=== PATIENT | female | born 2000 | race Caucasian/White ===

== ENCOUNTER → 2018-02-06 11:57 | Observation (INO) ==
--- NOTE | 2018-02-06 15:05 | Discharge Summary ---
Date of Encounter: 02/06/18 Time of Encounter: 11:26 - Discharge Diagnosis (1) 30 weeks gestation of Priority: Primary Status: Acute Comments: admitted for observation (2) Decreased movement during in third trimester, antepartum Priority: Secondary Status: Acute Comments: FHR 140 bpm moderate variability appropriate for gestational age patient reports feeling movement Qualifiers: Fetus number: single or unspecified fetus Qualified Code(s): O36.8130 - Decreased movements, third trimester, not applicable or unspecified - Discharge Medications Home Medications: Ferrous Sulfate [Iron] 325 mg PO 02/06/18 [History] Vit/Iron Fumarate/FA [ Tablet] 1 each PO 02/06/18 [History] Allergies/Adverse Reactions: 3 Allergy/AdvReac Type Severity Reaction Status Date / Time No Known Allergies Allergy Verified 02/06/18 11:21 Date of admission: 02/06/18 11:11 Primary care physician: PCP NONE Discharging clinician: Crystal Holman Anticipated date of discharge: 02/06/18 - Patient Status Disposition: Home, Self-Care Condition: Good - Discharge Instructions Follow Up With: NONE,PCP [Primary Care Provider] - - Diet and Activity Activity: increase activity as tolerated 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 Patient denies contractions, LOF or VB. During observation patient reports feeling an active baby and reports +FM. Time Attestation: Total time spent providing and/or coordinating discharge services: Time Spent: Less than 30 minutes Exam - Other Additional findings: Patient seen and assessed per RN. FHR 140 bpm moderate variability +15x15 accels no decels noted. Appropriate for gestational age. - VTE Reasons for not Prescribing Prophylaxis: Treatment not Indicated - Low risk for VTE
== END | disposition home or self-care (01) ==
LOC: 1NENULAB
PROVIDERS: ADMIT Obstetrics & Gynecology; ATTEND Obstetrics & Gynecology

== ENCOUNTER 2018-04-08 05:30 | Inpatient (IN) ==
[2018-04-08] MEDS ORDERED: Lidocaine 1% 20 ML MDV INFILT PRN (05:57)
[2018-04-08] MEDS ORDERED: Famotidine 20 MG/2 ML VIAL IVP PRN (05:57)
[2018-04-08] MEDS ORDERED: *HR* Nalbuphine 10 MG/ML AMPUL IVP PRN (05:57)
[2018-04-08] MEDS ORDERED: Naloxone 0.4 MG/ML INJ IVP PRN (05:57)
[2018-04-08] MEDS ORDERED: Ondansetron 4 MG/2 ML VIAL IVP PRN (05:57)
[2018-04-08] MEDS ORDERED: miSOPROStol 100 MCG TABLET PO PRN (05:57)
[2018-04-08] MEDS ORDERED: Metoclopramide 10 MG/2 ML VIAL IVP PRN (05:57)
[2018-04-08] MEDS ORDERED: D5% in 0.45% NACL 1,000 ML IVC SCH (06:00)
[2018-04-08] MEDS ORDERED: Ringers Solution, Lactated 1,000 ML IVC SCH (06:00)
[2018-04-08 06:29] LABS: Basophils % 0.3 %; Eosinophils # 0.1 K/mcL (0.0-0.6); Eosinophils % 0.9 %; Hematocrit 37.7 % (35.3-44.9); Hemoglobin 12.6 g/dL (11.5-15.4); Immature Granulocytes % 0.5 % (0-4); Lymphocytes # 2.3 K/mcL (0.6-4.6); Lymphocytes % 35.1 %; Mean Corpuscular HGB Conc 33.4 g/dL (31.6-35.5); Mean Corpuscular Hemoglobin 27.7 pg (28.0-33.3); Mean Corpuscular Volume 82.9 fL (83.0-100.0); Mean Platelet Volume 10.9 fL (9.4-12.4); Monocytes # 0.6 K/mcL (0.0-1.3); Monocytes % 9.5 %; Neutrophils # 3.6 K/mcL (1.6-8.9); Platelet Count 215 K/mcL (140-400); Red Blood Count 4.55 M/mcL (3.82-4.97); Red Cell Distribution Width 12.7 % (11.5-14.5); Segmented Neutrophils % 53.7 %
[2018-04-08 06:31] LABS: Amphetamine Screen,Urine Negative ng/mL (Cutoff=1000); Barbiturate Screen,Urine Negative ng/mL (Cutoff=200)
[2018-04-08 06:32] LABS: Benzodiazepines Screen,Urine Negative ng/mL (Cutoff=300); Cannabinoid Screen,Urine Negative ng/mL (Cutoff = 50); Cocaine Screen,Urine Negative ng/mL (Cutoff= 300); Opiate Screen,Urine Negative ng/mL (Cutoff=300); Phencyclidine Screen,Urine Negative ng/mL (Cutoff=25)
--- NOTE | 2018-04-08 09:13 | OB/GYN History & Physical ---
Date of Encounter: 04/08/18 Time of Encounter: 09:11 Assessment and Plan (1) 39 weeks gestation of Current visit: Yes Status: Acute (2) Elective induction of labor planned Current visit: Yes Status: Acute (3) High risk teen in third trimester Current visit: Yes Status: Acute The patient has good support socially. History of Present Illness Chief complaint: Induction of labor at 39 weeks HPI: Ms. Felix is a 17 year old female 1 para 0 with an EDC of 04/13/18 at 39 weeks and 1 day who presents for induction of labor. She has given informed consent. Her Mukherjee score is 10. She denies any rupture membranes or loss of fluid. Fetus has been active. was complicated by teen , anemia and treated with oral iron supplementation. Her labs include A+ blood type, GBS negative, rubella immune, varicella immune. Past Med Surg Social Fam HX - Past Medical History Source: patient, old records reviewed Medical history: no medical history Psychiatric history: no psych history - Past Surgical History Surgical History: no surgical history - Social History Smoking Status: Never smoker Smokeless Tobacco Status: No Alcohol use: none Drug use: none Occupational status: unemployed Current living situation: With Family - Family History Mother Family Member Ethnicity: Non- Living Status: Hx Family Cancer: Yes (cervical cancer) Obstetrical History - Pregnancies : 1 Medications and Allergies Ferrous Sulfate [Iron] 325 mg PO DAILY 02/06/18 [History] Vit/Iron Fumarate/FA [ Tablet] 1 each PO DAILY 02/06/18 [ History] 3 Allergy/AdvReac Type Severity Reaction Status Date / Time No Known Allergies Allergy Verified 04/08/18 06:08 Review of System OB All systems PM: reviewed and no additional remarkable complaints except as stated - Constitutional Constitutional ROS IM: fatigue, weight gain - Muscloskeletal Musculoskeletal: back pain Exam - Vital Signs Vital signs: Afebrile, vital signs stable - Constitutional Constitutional: well developed, well nourished, no acute distress, average body habitus - HEENT HEENT: Normocephaly, Mucus Membranes Moist - Neck Neck exam: normal inspection, supple - Lungs Respiratory exam: CTAB - Cardiovascular Cardiovascular exam: RRR - Breasts Breast: bilateral: normal (Gravid) - Abdomen Abdomen: Present: bowel sounds normal, gravid, non tender - Extremities Extremities exam: pedal edema, warm Deep Tendon Reflex Grade: 3+ Normal But Brisk - Vulva Vulva: bilateral: normal - Vagina Vagina: Present: normal moisture - Cervix Dilation: 3 Effacement: 80 Station: -1 - Anus/Rectum Anus/Rectum: Present: normal perianal skin Results Result Diagrams: 04/08/18 06:05 Abnormal lab results MCV 82.9 fL (83.0-100.0) L 04/08/18 06:05 MCH 27.7 pg (28.0-33.3) L 04/08/18 06:05 All other labs normal. - VTE Reasons for not Prescribing Prophylaxis: Treatment not Indicated - Low risk for VTE
--- NOTE | 2018-04-08 10:11 | Anesthesia Evaluation PreOp ---
Date of Encounter: 04/08/18 Time of Encounter: 10:10 - Past History Planned Operation: suzanne Cardiac History: Denies any Significant Hx Pulmonary History: Denies Any Significant HX BARREL RACER History: Denies Any Significant HX Other Medical History: Denies Any Significant HX Anesthesia History: No Prior Anesthetic Complications, Past Anesthesia : Yes (39 weeks, g1) Alcohol Use: none Drug use: none Medications and Allergies Ferrous Sulfate [Iron] 325 mg PO DAILY 02/06/18 [History] Vit/Iron Fumarate/FA [ Tablet] 1 each PO DAILY 02/06/18 [ History] 3 Allergy/AdvReac Type Severity Reaction Status Date / Time No Known Allergies Allergy Verified 04/08/18 06:08 - Meds/Allergy Pre-op Review Medications Reviewed: Yes Allergies Reviewed: Yes Beta Blockers on Current Med List: No Anesthesia Results - Labs 04/08/18 06:05 Anesthesia Exam O2 Sat Height 1.63 m Height 1.63 m Weight 69.4 kg Weight 69.4 kg Height: 64 Weight: 154 - HEENT Pupil (Motor): Pupils equal Mallampati: II Teeth: Normal Oral Opening: Greater than 3 - BARREL RACER LOC: Oriented BARREL RACER Motor: Normal RUE, Normal LUE, Normal RLE, Normal LLE, Normal Face BARREL RACER Sensory: Normal: RUE, LUE, RLE, LLE, Face - Cardiac Rhythm: Regular Murmur: None JVD: No Carotid Bruit: No - Pulmonary Breath Sounds: bilateral Clear Respiratory Effort: Symmetrical Anesthesia Assess/Plan ASA Score: 2 Modified Darren Scale for Level of Consciousness: Cooperative, oriented, and tranquil Anesthetic Plan: Regional Monitoring Plan: Standard Monitors
--- NOTE | 2018-04-08 13:44 | OB Labor Progress Note ---
Date of Encounter: 04/08/18 Time of Encounter: 13:42 Labor Progress Note - Subjective Subjective: Pt reports minimal pain with contractions. - Cervix Cervix: 3/80/-1 - Heart Tones Heart Tones: Category I - [place]: 2-3 minutes - Interventions Interventions: AROM for moderate amount clear fluid. IUPC placed. - Plan Plan: Continue to monitor. Augment with pitocin if needed for adequate contractions.
[2018-04-08] MEDS ORDERED: Oxytocin 20 units/ LR 1000 mL 20 UNIT/1,000 ML BAG IVC SCH (15:00)
[2018-04-08] MEDS ORDERED: Epidural Premix (fent/bupiv) 110 ML EP ONE (17:42)
[2018-04-08] MEDS ORDERED: *HR* FentaNYL (PF) 100 MCG/2 ML VIAL ONE (17:44)
--- NOTE | 2018-04-08 18:17 | Anesthesia Procedures ---
Date of Encounter: 04/08/18 Time of Encounter: 18:16 Procedures: Anesthesia - Epidural/Spinal Patient ID/Chart reviewed: Yes Patient examined: Yes OB Eval: Contractions: Non-stressed pattern Consent Obtained: Yes Supplemental Oxygen: None/Room Air Site Prep: Aseptic Technique Patient position: upright Local Anesthetic: Lidocaine 1% Amount of Local Anesthetic used: 3 Touhy Needle Gauge: 18 Touhy Needle Depth (cm): 7 Catheter Depth at Skin (cm): 13 Test Dose (1.5% Lido + Epi): Volume given (mls): 3 Test Dose Result: Negative Loading Dose: 0.25% Marcaine (mls): 6 Loading Dose: Fentanyl (mcg): 100 Loading Dose Administered: Thru Touhy Needle Infusion Med: 0.125% Bupivacaine w/ 2 mcg/ml Fentanyl Infusion Rate (mls/hr): [address]: Tegaderm Interspace Used: L3-L4 Loss of Resistance (HERIBERTO): Yes Blood: No CSF: No Paresthesia: No
[2018-04-08] MEDS ORDERED: *HR* FentaNYL (PF) 100 MCG/2 ML VIAL EP ONE (18:18)
[2018-04-08] MEDS ORDERED: EPHEDrine 50 MG/ML VIAL IVP PRN (18:18)
[2018-04-08] MEDS ORDERED: Epidural Premix (fent/bupiv) 110 ML EP SCH (18:30)
--- NOTE | 2018-04-08 18:32 | OB Labor Progress Note ---
Date of Encounter: 04/08/18 Time of Encounter: 18:30 Labor Progress Note - Subjective Subjective: The patient is comfortable after her epidural. She has previously had her water broke and an IUPC placed. She is currently on 2 milliunits of Pitocin. - Vital Signs Vital Signs: Afebrile, vital signs stable - Cervix Cervix: 4/90/0 station, vertex - Heart Tones Heart Tones: 120s, CAT 1 - [place]: Every 3-4 minutes, 50-75 mmHg on 2 milliunits of Pitocin - Interventions Interventions: 39 week IUP for induction of labor, status post epidural - Plan Plan: Continue induction of labor. Anticipate vaginal delivery
--- NOTE | 2018-04-08 22:21 | OB/GYN Procedure Note ---
Delivery - Delivery Date: 04/08/18 Provider: Lindy Kim Intrapartum events: none Delivery induction: misoprostol Delivery augmentation: rupture of membranes, pitocin Delivery monitor: external FHT, external uterine, internal uterine Anesthesia: intravenous, epidural Quantitated Blood Loss: 150 - Infant (s) Infant A Infant Delivery Date: 04/08/18 Delivery Time: 22:01 Presentation: vertex Position: JUAREZ Route of delivery: Gender: Male Viability: Viable Pounds: 6 Ounces: 10 Weight Gram: 2.995 kg at 1 minute: 8 at 5 mins: 9 Shoulder Dystocia: not encountered Placenta: spontaneous Cord: 3 umbilical vessels - Repair Episiotomy: none Laceration Description: Periurethral (Left), Labial (Right repaired) - Complications Delivery complications: none Delivery comments: The patient was complete and pushing with epidural anesthesia with a spontaneous vaginal delivery in the JUAREZ position of a vigorous male infant weighing 6 lbs. 10 oz. with Apgars of 8 at 1 minute and 9 at 5 minutes. Infant was placed on the maternal abdomen. The cord was clamped and cut after pulsations ceased. Cord blood obtained. The placenta was delivered spontaneous and intact. Right labial laceration was repaired with 4-0 monoicryl in a running nonlocking fashion. Left periurethral laceration was hemostatic and not repaired. Estimated blood loss 150 mL, complications none. Both mother and were recovering in stable condition in the LDR - Disposition Mom disposition: stable in LDR [place] disposition: stable in LDR
[2018-04-09] MEDS ORDERED: Acetaminophen 325 MG TABLET PO PRN (04:35)
[2018-04-09] MEDS ORDERED: *HR* HYDROcodone/Acet 5/325 mg TABLET PO PRN (04:35)
[2018-04-09] MEDS ORDERED: Oxytocin 20 units/ LR 1000 mL 20 UNIT/1,000 ML BAG IVC SCH (04:35)
[2018-04-09] MEDS: Ibuprofen 600 MG TABLET PO SCH ×3 (07:10→16:28)
[2018-04-09] MEDS: Prenatal Vit/FA 1 EACH TABLET PO SCH (08:57)
--- NOTE | 2018-04-09 09:29 | OB/GYN Progress Note ---
Date of Encounter: 04/18/18 Time of Encounter: 09:27 - Assessment and Plan (1) (normal spontaneous vaginal delivery) Status: Acute Mother and baby resting comfortably at bedside Pain well controlled; PO Motrin if requested Continue to monitor Plan to discharge home tomorrow due to late delivery last night I was present for this assessment and agree Subjective - Subjective Principal diagnosis: s/p normal standard vaginal delivery Interval history: Mother and baby resting comfortably at bedside Pain well controlled with PO Motrin Ambulating without difficulty Voiding appropriately Normal Appetite; has not yet had Bowel Movement Mild Lochia with passage of 1 clot this morning Counseled on signs/symptoms of post- depression Plans to feed baby with formula Plan to discharge home tomorrow Patient reports: appetite normal, voiding normally, pain well controlled, ambulating normally : doing well, bottle feeding Objective - Latest Vital Signs Latest vital signs: Vital Signs Temp Pulse Resp BP Pulse Ox 04/09/18 09:18 98.1 F 110 16 121/71 98 04/09/18 03:15 98.6 F 116 14 117/73 99 04/09/18 02:00 97.6 F 111 16 131/88 98 04/09/18 01:00 97.6 F 90 14 123/81 98 Intake and Output 04/08/18 04/09/18 04/09/18 23:59 07:59 15:59 Output Total 1020 / 1020 Balance -1020 / -1020 Output: Urine 1020 / 1020 Other: Weight 67.4 kg Patient Weight 04/09/18 23:59 Weight 67.4 kg - Exam Lungs: bilateral: normal Chest: Normal S1, Normal S2 Extremities: Present: normal, edema Abdomen: Present: normal appearance, soft, gravid Uterus: Present: normal, firm Uterus Position: At Umbilicus
[2018-04-10] MEDS: Ibuprofen 600 MG TABLET PO SCH (02:20)
[2018-04-10] MEDS: Prenatal Vit/FA 1 EACH TABLET PO SCH (09:17)
[2018-04-10 09:29] VITALS: BP 109/72
--- NOTE | 2018-04-10 10:22 | Discharge Summary ---
Date of Encounter: 04/10/18 Time of Encounter: 10:20 - Discharge Diagnosis (1) (normal spontaneous vaginal delivery) Priority: Primary Status: Acute Comments: Stable in PP, meeting all PP milestones, pain well managed on po pain medication , bottle feeding, desires discharge. - Discharge Medications Prescriptions: Ibuprofen [Motrin] 600 mg PO Q6HR #60 tablet Docusate [Colace] 100 mg PO BID #30 capsule Home Medications: Vit/Iron Fumarate/FA [ Tablet] 1 each PO DAILY 02/06/18 [ History] Acetaminophen [Tylenol] 650 mg PO Q6H PRN tablet 04/10/18 [Rx] Docusate [Colace] 100 mg PO BID #30 capsule 04/10/18 [Rx] Ibuprofen [Motrin] 600 mg PO Q6HR #60 tablet 04/10/18 [Rx] Vit/FA 1 each PO DAILY tablet 04/10/18 [Rx] Allergies/Adverse Reactions: 3 Allergy/AdvReac Type Severity Reaction Status Date / Time No Known Allergies Allergy Verified 04/08/18 06:08 Data Procedures and tests throughout hospitalization: Laboratory Tests 04/08/18 04/08/18 06:05 06:05 WBC 6.6 RBC 4.55 Hgb 12.6 Hct 37.7 MCV 82.9 L MCH 27.7 L MCHC 33.4 RDW 12.7 Plt Count 215 MPV 10.9 Immature Gran % 0.5 Seg Neutrophils % 53.7 Lymphocytes % 35.1 Monocytes % 9.5 Eosinophils % 0.9 Basophils % 0.3 Neutrophils # 3.6 Lymphocytes # 2.3 Monocytes # 0.6 Eosinophils # 0.1 Basophils # 0.0 Urine Opiates Screen Negative Ur Barbiturates Screen Negative Ur Phencyclidine Scrn Negative Ur Amphetamines Screen Negative U Benzodiazepines Scrn Negative Urine Cocaine Screen Negative U Marijuana (THC) Screen Negative Ur Drug Screen Interp See Below Date of admission: 04/08/18 05:45 Primary care physician: PCP NONE Consults: 04/09/18 04:35 Consult to Plant Pathologist [CONS] Routine Comment: Vaginal delivery, consult needed Discharging clinician: Nette Paul Anticipated date of discharge: 04/10/18 - Patient Status Disposition: Home, Self-Care Condition: Good Functional capacity at discharge: independent ambulation Overall status at discharge: patient is back to baseline - Discharge Instructions Follow Up With: NONE,PCP [Primary Care Provider] - - Diet and Activity Activity: resume usual activities as tolerated Diet: regular diet Hospital Course Reason for admission: IUP at term Delivery: Episiotomy: none Laceration: other Other procedures: none complications: none Discharge diagnosis: IUP at term delivered baby: male Hospital course: Delivery - Delivery Date: 04/08/18 Provider: Lindy Kim Intrapartum events: none Delivery induction: misoprostol Delivery augmentation: rupture of membranes, pitocin Delivery monitor: external FHT, external uterine, internal uterine Anesthesia: intravenous, epidural Quantitated Blood Loss: 150 - Infant (s) Infant A Infant Delivery Date: 04/08/18 Delivery Time: 22:01 Presentation: vertex Position: JUAREZ Route of delivery: Gender: Male Viability: Viable Pounds: 6 Ounces: 10 Weight Gram: 2.995 kg at 1 minute: 8 at 5 mins: 9 Shoulder Dystocia: not encountered Placenta: spontaneous Cord: 3 umbilical vessels - Repair Episiotomy: none Laceration Description: Periurethral (Left), Labial (Right repaired) - Complications Delivery complications: none Delivery comments: The patient was complete and pushing with epidural anesthesia with a spontaneous vaginal delivery in the JUAREZ position of a vigorous male infant weighing 6 lbs. 10 oz. with Apgars of 8 at 1 minute and 9 at 5 minutes. Infant was placed on the maternal abdomen. The cord was clamped and cut after pulsations ceased. Cord blood obtained. The placenta was delivered spontaneous and intact. Right labial laceration was repaired with 4-0 monoicryl in a running nonlocking fashion. Left periurethral laceration was hemostatic and not repaired. Estimated blood loss 150 mL, complications none. Both mother and were recovering in stable condition in the LDR - Disposition Mom disposition: stable in PP and appropriate for discharge, Time Attestation: Total time spent providing and/or coordinating discharge services: Time Spent: Less than 30 minutes Exam - Constitutional Vitals: Temp Pulse Resp BP Pulse Ox 98.2 F 85 14 109/72 97 04/10/18 07:30 04/10/18 07:30 04/10/18 07:30 04/10/18 07:30 04/09/18 20:15 General appearance IM: A&O X 3 - Respiratory Respiratory exam: Present: CTAB - Cardiovascular Cardiovascular exam IM: Present: RRR - GI/Abdominal GI/Abdominal exam IM: soft - Uterine Tone: Firm Uterus Position: At Umbilicus - Extremities Exam Extremities exam IM: Present: normal capillary refill, normal inspection - Neurological Exam Neurological exam: normal gait, oriented X3 - Psychiatric Additional comments: reports good mood
== END 2018-04-10 12:30 | disposition home or self-care (01) | DRG 560 ==
LOC: 1NENULAB 05:45 → 1NENUOBS 04-09 01:19
PROVIDERS: ADMIT Advanced Practice Midwife; ATTEND Obstetrics & Gynecology

== ENCOUNTER 2020-03-21 00:52 | Inpatient (IN) ==
[2020-03-21] MEDS ORDERED: Oxytocin 20 units/ LR 1000 mL 20 UNIT/1,000 ML BAG IVC ONE (01:02)
[2020-03-21] MEDS ORDERED: Lidocaine 1% 20 ML MDV ONE (01:28)
[2020-03-21 02:33] LABS: Basophils % 0.2 %; Eosinophils # 0.1 K/mcL (0.0-0.6); Eosinophils % 0.4 %; Hematocrit 36.3 % (35.3-44.9); Immature Granulocytes % 0.6 % (0-4); Lymphocytes # 2.8 K/mcL (0.6-4.6); Mean Corpuscular HGB Conc 30.3 g/dL (31.6-35.5); Mean Corpuscular Hemoglobin 23.4 pg (28.0-33.3); Mean Corpuscular Volume 77.1 fL (83.0-100.0); Mean Platelet Volume 10.4 fL (9.4-12.4); Monocytes # 0.9 K/mcL (0.0-1.3); Monocytes % 6.4 %; Neutrophils # 9.5 K/mcL (1.6-8.9); Platelet Count 261 K/mcL (140-400); Red Blood Count 4.71 M/mcL (3.82-4.97); Red Cell Distribution Width 13.8 % (11.5-14.5); Segmented Neutrophils % 71.4 %; White Blood Count 13.3 K/mcL (4.3-11.1)
[2020-03-21] MEDS ORDERED: Lanolin 7 G OINT...G. TP PRN (03:28)
[2020-03-21] MEDS ORDERED: Benzocaine/Menthol 56 GM AEROSOL SPRAY TP PRN (03:28)
[2020-03-21] MEDS ORDERED: Oxytocin 20 units/ LR 1000 mL 20 UNIT/1,000 ML BAG IVC SCH (03:28)
[2020-03-21] MEDS ORDERED: Acetaminophen 325 MG TABLET PO PRN (03:28)
[2020-03-21] MEDS: Ibuprofen 600 MG TABLET PO PRN ×2 (06:04→20:03)
[2020-03-21] MEDS: Prenatal Vit/FA 1 EACH TABLET PO SCH (07:51)
[2020-03-22 08:14] VITALS: BP 116/74
[2020-03-22] MEDS: Prenatal Vit/FA 1 EACH TABLET PO SCH (08:46)
[2020-03-22] MEDS: Ibuprofen 600 MG TABLET PO PRN (08:47)
== END 2020-03-22 10:50 | disposition home or self-care (01) | DRG 560 ==
LOC: 1NENULAB → OBSVTOIN 00:52 → 1NENULAB 01:01 → 1NENUOBS 04:03
PROVIDERS: ADMIT Obstetrics & Gynecology; ATTEND Obstetrics & Gynecology